=== PATIENT | female | born 1965 | race Caucasian/White ===

== ENCOUNTER → 2020-07-29 | Outpatient (REF) | payer OTHER, MEDICARE ==
[2020-07-29 13:06] LABS: APPEARANCE, URINE CLEAR (CLEAR); BACTERIA, URINE AUTO NEGATIVE (NEGATIVE); BILIRUBIN, URINE AUTO NEGATIVE (NEGATIVE); BLOOD, URINE BLOOD NEGATIVE (NEGATIVE); COLOR, URINE YELLOW (YELLOW); GLUCOSE, URINE (UA) AUTO NEGATIVE (NEGATIVE); KETONE, URINE AUTO NEGATIVE (NEGATIVE); LEUKOCYTE ESTERASE, URINE AUTO NEGATIVE (NEGATIVE); MUCUS, URINE SMALL (NEGATIVE); NITRITE, URINE AUTO NEGATIVE (NEGATIVE); PROTEIN, URINE AUTO NEGATIVE (NEGATIVE); RBC, URINE AUTO 1 /HPF (0-3); SPECIFIC GRAVITY URINE AUTO 1.018 (1.002-1.035); SQUAMOUS EPITHELIAL CELL UR AU 0 /HPF (0-6); UROBILINOGEN, URINE AUTO 0.2 mg/dL (0.0-2.0); WBC, URINE AUTO 0 /HPF (0-3)
== END ==
LOC: M SMT 12:34
PROVIDERS: ATTEND Nurse Practitioner Women's Health
DX: R32 Unspecified urinary incontinence (principal)

== ENCOUNTER → 2022-04-09 | Outpatient (REF) | payer OTHER, MEDICARE ==
[2022-04-09 13:53] LABS: APPEARANCE, URINE MANUAL HAZY (CLEAR); BILIRUBIN, URINE MANUAL NEGATIVE (NEGATIVE); BLOOD URINE MANUAL TRACE (NEGATIVE); COLOR, URINE MANUAL YELLOW (YELLOW); GLUCOSE, URINE (UA) MANUAL NEGATIVE (NEGATIVE); KETONE, URINE MANUAL NEGATIVE (NEGATIVE); LEUKOCYTE ESTERASE, URINE MAN TRACE (NEGATIVE); NITRITE, URINE MANUAL NEGATIVE (NEGATIVE); PROTEIN, URINE MANUAL NEGATIVE (NEGATIVE); UROBILINOGEN, URINE MANUAL NORMAL (NORMAL)
[2022-04-09 14:30] LABS: SQUAMOUS EPITHELIAL CELL URINE SMALL AMOUNT /hpf (SMALL AMT)
[2022-04-09 14:31] LABS: BACTERIA, URINE NONE SEEN; MUCUS, URINE SMALL AMOUNT (NEGATIVE)
[2022-04-09 15:07] LABS: HYALINE CAST, URINE NONE SEEN /lpf (0-1)
== END ==
LOC: M SMT 13:10
PROVIDERS: ATTEND Urology
DX: R39.89 Other symptoms and signs involving the genitourinary system (principal)

== ENCOUNTER 2022-06-21 09:21 | Day surgery (SDC) | payer OTHER, MEDICARE ==
[~2022-06-21] VITALS: Ht 160 cm; Wt 82.6 kg
[~2022-06-21 09:21] MED LIST: ASPI81TA26 PO; ATOR40TA75 PO; BELB150M BU; BUPR-365 PO; BUPR15TASR PO; CYCL-707 PO; LYRI75CA PO; METF500T13 PO; METO25TA4 PO; MODA200T15 PO; MONT10TA97 PO; NITR0.4S14 SL; OLAN1TAB16 PO; OMEP1CAP73 PO; SERT50TA29 PO; ceFAZolin SOD 2 GM in IV 1 EA IV ONE
[2022-06-21] MEDS ORDERED: LR 1,000 ML IV SCH (09:45)
[2022-06-21] MEDS ORDERED: propofoL 200 MG/20 ML VIAL As Ordered ONE (10:48)
[2022-06-21] MEDS ORDERED: MIDAZOLAM INJ 2MG/2ML VIAL As Ordered ONE (10:48)
[2022-06-21] MEDS ORDERED: fentaNYL 100 MCG/2 ML INJECTION As Ordered ONE (10:48)
[2022-06-21] MEDS ORDERED: ONDANSETRON 4MG 2ML VIAL As Ordered ONE (10:48)
[2022-06-21] MEDS ORDERED: LIDOCAINE 2% 100MG/5ML SDV (FOR ANES.) As Ordered ONE (10:49)
[2022-06-21 12:50] VITALS: BP 132/84
[2022-06-21] MEDS ORDERED: MACR100C43 PO (13:46)
== END 2022-06-21 12:48 | disposition home or self-care (01) ==
LOC: M SDC 09:21
PROVIDERS: ATTEND Urology
DX: N30.10 Interstitial cystitis (chronic) without hematuria (principal); I25.10 Atherosclerotic heart disease of native coronary artery without angina pectoris; I25.2 Old myocardial infarction; I10 Essential (primary) hypertension; E78.5 Hyperlipidemia, unspecified; F32.A Depression, unspecified; K21.9 Gastro-esophageal reflux disease without esophagitis; J30.2 Other seasonal allergic rhinitis; Z98.61 Coronary angioplasty status; Z79.82 Long term (current) use of aspirin; Z79.899 Other long term (current) drug therapy
CPT/HCPCS: 52204; 52260; J2405

== ENCOUNTER 2023-03-17 08:57 | Day surgery (SDC) | payer OTHER, MEDICARE ==
[~2023-03-17] VITALS: Ht 160 cm; Wt 79.9 kg
[~2023-03-17 08:57] MED LIST changes: +BELB75MI; +MACR100C43 PO; +SOLI10TA
[2023-03-17] MEDS ORDERED: LR 1,000 ML IV SCH ×2 (09:50→13:35)
[2023-03-17] MEDS ORDERED: fentaNYL 100 MCG/2 ML INJECTION As Ordered ONE ×2 (11:10→12:28)
[2023-03-17] MEDS ORDERED: propofoL 200 MG/20 ML VIAL As Ordered ONE ×2 (11:10→12:41)
[2023-03-17] MEDS ORDERED: ONDANSETRON 4MG 2ML VIAL As Ordered ONE (11:10)
[2023-03-17] MEDS ORDERED: MIDAZOLAM INJ 2MG/2ML VIAL As Ordered ONE (11:10)
[2023-03-17] MEDS ORDERED: LIDOCAINE 2% 100MG/5ML SDV (FOR ANES.) As Ordered ONE (11:10)
[2023-03-17] MEDS ORDERED: METHYLERGONOVINE MALEATE 0.2MG/ML 1ML VIAL As Ordered ONE (11:18)
[2023-03-17] MEDS ORDERED: ESTROGENS VAGINAL CREAM 30GM As Ordered ONE (11:18)
[2023-03-17] MEDS ORDERED: METHYLENE BLUE 0.5% (5MG/ML) 10 ML AMP (PROVAYBLUE) As Ordered ONE (11:19)
[2023-03-17] MEDS ORDERED: ACETAMINOPHEN 1000MG 100ML IV BAG As Ordered ONE (11:56)
[2023-03-17] MEDS ORDERED: PHENYLephrine 500MCG 5ML (100MCG/ML) SYRINGE As Ordered ONE ×2 (12:30→13:14)
[2023-03-17] MEDS ORDERED: ePHEDrine SULFATE 25 MG/5 ML(5MG/ML) SYRINGE As Ordered ONE (12:30)
[2023-03-17] MEDS ORDERED: fentaNYL 100 MCG/2 ML INJECTION IV PRN (13:35)
[2023-03-17] MEDS ORDERED: ONDANSETRON 4MG 2ML VIAL IV PRN (13:35)
[2023-03-17] MEDS ORDERED: MEPERIDINE 25 MG/ML 1ML VIAL IV PRN (13:35)
[2023-03-17] MEDS ORDERED: ESMOLOL INJ 100MG/10ML VIAL As Ordered ONE (13:39)
[2023-03-17] MEDS ORDERED: HYDR-3713 PO (13:43)
[2023-03-17] MEDS ORDERED: CEPH500C PO (13:43)
[2023-03-17 15:45] VITALS: BP 132/80; TEMP 97.9; O2SAT 96
== END 2023-03-17 15:48 | disposition home or self-care (01) ==
LOC: M SDC 08:57
PROVIDERS: ATTEND Urology
DX: N39.3 Stress incontinence (female) (male) (principal); N81.10 Cystocele, unspecified; I25.10 Atherosclerotic heart disease of native coronary artery without angina pectoris; I10 Essential (primary) hypertension; I25.2 Old myocardial infarction; Z79.82 Long term (current) use of aspirin; Z79.899 Other long term (current) drug therapy; Z98.51 Tubal ligation status; E78.00 Pure hypercholesterolemia, unspecified; Z79.84 Long term (current) use of oral hypoglycemic drugs
CPT/HCPCS: 57240; 57288; 88302; C1771; J0131; J0665; J1100; J1805; J2210; J2250; J2371; J2405; J3010; Q9968